=== PATIENT | female | born 1935 ===

== ENCOUNTER → 2018-07-25 | Outpatient (CLI) | payer MEDICARE, OTHER ==
--- NOTE | 2018-07-25 13:14 | CONS ---
Assessment/Plan Assessment/Plan Hospital Course (Demo Recall) 82-year-old female presents today with lower back pain and radiating pain down her legs. She is quite frustrated today as well is angry with her situation. She has severe osteoporosis including multiple vertebral compression fractures of her lumbar spine as well as degenerative disc disease and likely nerve root compression resulting in lumbar radiculopathy. Imaging and exam of her hips are normal. At this time I recommended that she get treated for osteoporosis including use of bisphosphonates, calcium, vitamin D. She became very angry at this point and said that those medications are very dangerous and she will not be treated with it. I recommended she see a physical therapist and physical medicine rehabilitation physician to manage and treat her lower back pain and ra diculopathy. She also became angry with this and demanded a lower back injection. I explained to her that I do not do spine injections or pelvic injections. I explained to those are generally done by spine surgeons or pain management doctors under use of fluoroscopy. This angered her more and she decided to end the appointment. Follow-up PRN Consultation Date/Type/Reason Admit Date/Time Date of Consultation: Jul 25, 2018 Reason for Consultation Lower back pain Date/Time of Note DATE: 07/25/18 TIME: 13:05 Hx of Present Illness This is an 82-year-old female with multiple medical problems including history of hyperparathyroidism and osteoporosis who presents to clinic today for a long history of back pain and pain radiating down her legs left worse than right. She has numbness and tingling going down the legs. Patient's pain is 10/10. Described as sharp, stabbing, throbbing, electrical, burning and crushing. She can stand for long periods of time. She uses a walker or shopping cart at all times. She has had previous steroid injection of lower back and buttock area which helped her. She has had epidural injections which have not helped. She does limp. At times that not that she cannot walk. Patient denies fever, chills, shortness of breath, chest pain, nausea/vomiting, constipation, diarrhea, Past Medical History Hyperparathyroidism Osteoporosis Hypertension Headaches Tremors Past Surgical History Parathyroidectomy Cataract surgery Family History Significant Family History: no pertinent family hx Social History Alcohol Use: none Smoking Status: Never smoker Drug Use: none Exam/Review of Systems Exam Vitals Weight: 227 pounds Height: 5 feet 3 inches Temperature: 90.4 Heart Rate: 104 Blood Pressure: 165/76 Respiratory Rate: 18 Exam General: Awake, alert, in no acute distress, pleasant and cooperative Heart: regular rhythm Lungs: breathing comfortably, no tachypnea or dyspnea MUSCULOSKELETAL: Tender to palpation over the midline of the back and paraspinal muscles. Pain to palpation over bilateral sacroiliac joints. Patient has fluid range of motion of the hips. Sensation grossly intact to light touch in a sural, saphenous, deep peroneal, superficial peroneal, medial and lateral plantar nerve distribution. Motor is intact, patient able to dorsiflex and plantarflex ankle and extend and flex great toe. Dorsalis Pedis pulse +2, Brisk capillary refill. Compartments are soft. Calves non-tender to palpation bilaterally. Imaging Imaging AP lateral of the lumbosacral spine as well as an AP pelvis were obtained in clinic today and personally reviewed. Demonstrates severe degenerative disc disease of the lumbar spine at multiple levels. There are multiple vertebral compression fractures that appear to be chronic. 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 General demineralization of the skeleton. KRISTAL DELAROSA MD Jul 25, 2018 13:14
--- NOTE | 2018-07-27 14:30 | RADRPT ---
PROCEDURE: XR Pelvis. CLINICAL INDICATION: PAIN TECHNIQUE: Single AP view of the pelvis. COMPARISON: No prior studies are available for comparison. FINDINGS: Evaluation is slightly limited due to the patient's rotation, specifically evaluation of the left hip . Pelvic ring appears intact. Degenerative change of the lower lumbar spine. Overlying soft tissues u nremarkable. IMPRESSION: Right hip is unremarkable. Evaluation of the left hip is slightly limited due to patient's rotation a lthough there is no definitive fracture is identified. In case of persistent pain consider further ev aluation with CT. RPTAT: QQ Physician Stella Date Time Electronically viewed and signed by Physician Stella on 07/27/2018 14:30 rV/
--- NOTE | 2018-07-27 14:34 | RADRPT ---
PROCEDURE: XR Lumbar Spine. CLINICAL INDICATION: PAIN TECHNIQUE: AP, and lateral views of the lumbar spine were obtained. COMPARISON: No prior studies are available for comparison. FINDINGS: Mild levoscoliosis of the lumbar spine. Mild diffuse osteopenia. The height of the vertebral bodies is preserved. Moderate multilevel degenerative disc disease with l oss of disc space height and endplate osteophytosis. Atherosclerotic calcifications of the aorta. IMPRESSION: 1. Mild levoscoliosis of the lumbar spine. 2. Moderate spondylosis of the lumbar spine. 3. No acute fracture or subluxation. RPTAT: QQ Physician Stella Date Time Electronically viewed and signed by Physician Stella on 07/27/2018 14:33 rV/
== END | disposition home or self-care (01) ==
LOC: HKI 10:30
PROVIDERS: ATTEND Orthopaedic Surgery Adult Reconstructive Orthopaedic Surgery
DX: M51.36 Other intervertebral disc degeneration, lumbar region (principal); M46.1 Sacroiliitis, not elsewhere classified
CPT/HCPCS: 72100; 72170; G0463